=== PATIENT | female | born 1950 | race Caucasian/White ===

== ENCOUNTER 2017-02-05 20:46 | Emergency (ER) | payer MEDICARE | END 2017-02-05 23:25 | disposition home or self-care (01) | LOC: FER 20:46 | DX: N89.8 Other specified noninflammatory disorders of vagina (principal); I10 Essential (primary) hypertension; E03.9 Hypothyroidism, unspecified; Z90.710 Acquired absence of both cervix and uterus | CPT/HCPCS: 99283 ==